=== PATIENT | male | born 1985 | race Caucasian/White ===

== ENCOUNTER 2023-03-31 10:29 | Emergency (ER) | payer SELFPAY ==
[2023-03-31 10:31] VITALS: BP 137/96; PULSE 101; RESP 15; TEMP 37.4; O2SAT 100; BMI 24.3
[2023-03-31 10:35] VITALS: BP 137/96; PULSE 102; RESP 18; TEMP 37.2; O2SAT 100
--- NOTE | 2023-03-31 10:39 | DI.RAD.S_ITS ---
PROCEDURE: XR CHEST 1V INDICATIONS: chest pain TECHNIQUE: One view of the chest was acquired. COMPARISON: None. FINDINGS: Surgical changes and devices: None. Lungs and pleura: Lungs are clear. No pleural effusions or pneumothorax. Mediastinum: Mediastinal contours appear normal. Heart size is normal. Bones and chest wall: No suspicious bony lesions. Overlying soft tissues appear unremarkable. IMPRESSION: No acute cardiopulmonary abnormality is seen. Dictated by: Bin Thornton M.D. on 03/31/2023 at 10:58 Approved by: Bin Thornton M.D. on 03/31/2023 at 10:58
== END 2023-03-31 11:00 | disposition left against medical advice (07) ==
PROVIDERS: Emergency Provider Emergency Medicine
DX: R07.9 Chest pain, unspecified (principal)
CPT/HCPCS: 71045; 93005; 99281